=== PATIENT | male | born 1995 | race Caucasian/White ===

== ENCOUNTER 2016-12-26 14:29 | Outpatient (CLI) ==
[2014-12-02 10:19] VITALS: BMI 21.1
--- NOTE | 2016-12-26 15:29 | US ---
EXAM: SCROTAL ULTRASOUND HISTORY: Pain and palpable region of the left scrotum FINDINGS: Scrotal ultrasound exam performed using real time siegel-scale and color-flow Doppler imaging. The right testis measures 3.8 x 2.2 x 3.0 cm and the left measures 4.1 x 2.0 x 2.4 cm. Testes demonstrate normal and symmetric echogenicity and blood flow. Incidental note of a tiny test icular appendage bilaterally. Epididymal tissue within normal limits. There is a moderate sized le ft varicocele which was found at the region of palpable concern. Trace simple bilateral hydroceles. IMPRESSION: Moderate sized left varicocele corresponds to the region of palpable concern. Otherwise findings within normal limits.
== END 2016-12-26 14:30 | disposition home or self-care (01) ==
LOC: RAD 14:29
PROVIDERS: ATTEND Nurse Practitioner Family
DX: N50.89 Other specified disorders of the male genital organs (principal)

== ENCOUNTER 2017-08-23 16:21 | Outpatient (CLI) ==
[2014-12-02 10:19] VITALS: BMI 21.1
[2017-08-23 16:28] LABS: FLU INTERNAL QC INTERNAL QC VALID
[2017-08-23 16:29] LABS: RAPID FLU A NEGATIVE (NEGATIVE); RAPID FLU B NEGATIVE (NEGATIVE)
== END 2017-08-23 16:22 | disposition home or self-care (01) ==
LOC: LAB 16:21
PROVIDERS: ATTEND Nurse Practitioner Family
DX: J02.9 Acute pharyngitis, unspecified (principal); R05 Cough; R50.9 Fever, unspecified
CPT/HCPCS: 87651; 87804; 87880

== ENCOUNTER 2018-03-20 13:59 | Outpatient (CLI) ==
[2014-12-02 10:19] VITALS: BMI 21.1
--- NOTE | 2018-03-20 15:27 | DI ---
EXAM: Five views of the lumbar spine. History: Lower back pain. Comparison: Lumbar spine radiograph 09/27/2014 Findings: No acute fracture or subluxation. No change in the mild to moderate disc space narrowing at T12-L1 with endplate sclerosis and small osteophytes. The other disc space heights are preserved. Impression: 1. No acute osseous abnormality. 2. No change in the mild to moderate degenerative disc disease at T12-L1.
--- NOTE | 2018-03-20 15:40 | DI ---
EXAM: Cervical spine seven views HISTORY: Neck pain. FINDINGS: Normal bone density. At C5/C6, there is degenerative appearance with endplate irregularit y and anterior osteophytic spurring with subtle loss of height at C5. The other interspaces and vert ebral bodies appeared normal. Facets are normal. There is no bony encroachment upon the neural fora karine or spondylolisthesis. Lateral masses of C1 and C2 are normally aligned and the odontoid proce ss is intact. IMPRESSION: Degenerative changes C5/C6. Otherwise unremarkable.
== END 2018-03-20 14:00 | disposition home or self-care (01) ==
LOC: LAB 13:59
PROVIDERS: ATTEND Nurse Practitioner Family
DX: M54.2 Cervicalgia (principal); M54.5 Low back pain; G44.201 Tension-type headache, unspecified, intractable
CPT/HCPCS: 36415; 80053; 81001; 85025

== ENCOUNTER 2018-04-10 08:08 | Outpatient (CLI) ==
[2014-12-02 10:19] VITALS: BMI 21.1
--- NOTE | 2018-04-10 11:25 | MRI ---
EXAM: MRI cervical spine without IV contrast. DATE: 04/10/2018. HISTORY: Cervical degenerative disc disease. TECHNIQUE: Sagittal and axial T1W and T2W sequences of the cervical spine along with sagittal IR and coronal T2W sequences were obtained using 1.2 Selina magnet. No IV contrast. COMPARISON: C-spine series 20 March 2018. FINDINGS: There is no cervical scoliosis. No acute c-spine fracture, subluxation, osseous malignanc y, or jumped facet is evident. Cervical vertebra are normal in height. Bone marrow signal is normal . Moderate disc space narrowing and small anterior osteophytes are detected at C5-6. Cervical and u pper thoracic spinal cord reveals no syrinx, cord edema, myelomalacia, or neoplasm. Visible brainstem is normal. There is no Chiari 1 malformation. Small lymph nodes are identified wi thin the anterior cervical chain bilaterally. No thyroid, submandibular, or parotid gland neoplasm i s apparent. Trachea, larynx, and epiglottis are normal. No suspicious neck mass, cervical lymphaden opathy, apical lung mass, pneumonia, or pleural effusion is identified. Segmental analysis: C2-3: Normal. C3-4: Normal. C4-5: Normal. C5-6: Normal. C6-7: Normal. C7-T1: Normal. IMPRESSIONS: 1. No cervical disc protrusion/bulge, cord compression, central stenosis or foraminal stenosis. 2. Mild/moderate disc disease at C5-6.
--- NOTE | 2018-04-10 11:36 | MRI ---
EXAM: MRI lumbar spine without IV contrast. DATE: 04/10/2018. HISTORY: Low back pain. TECHNIQUE: Sagittal and axial T1W and T2W sequences of the lumbar spine along with sagittal IR and c oronal T2W sequences were obtained using 1.2 Selina magnet. No IV contrast. COMPARISON: LS spine series 20 March 2018. MRI L-spine 12/08/2014. FINDINGS: There are five [id number]-iun-xanbarg lumbar vertebra. Minor leftward curvature of the lumbar sp ine is redemonstrated. No acute lumbar fracture, subluxation, osseous malignancy, or pars interartic ularis defect is identified. Lumbar vertebrae normal in height. Chronic Schmorl's nodes are identif ied at each level from T11 through S1. Bone marrow signal is normal. Mild T12-L1 and mild L5-S1 dis c space narrowing is detected. No acute sacral fracture or stress reaction is apparent. SI joints a re unremarkable. Conus medullaris terminates at L1. Visible spinal cord is normal. No retroperitoneal lymphadenopathy, paraspinal mass, or aortic aneurysm is detected. Paraspinal musc ulature is symmetric bilaterally. Visible portions of the liver, spleen, adrenal glands, and kidneys are normal. No definitive bowel obstruction or neoplasm is apparent. Segmental analysis: T11-12: Normal. T12-L1: Minimal posterior disc bulge does not cause conus compression, central stenosis or foraminal stenosis. L1-2: Normal. L2-3: Short pedicles and minor posterior to foraminal disc bulge cause mild central canal stenosis a nd minor bilateral foraminal encroachment. L3-4: Short pedicles and minor concentric disc bulge cause mild central canal stenosis and mild bila teral foraminal narrowing. L4-5: Short pedicles and minor posterior to foraminal disc bulge cause moderate central canal stenos is and moderate narrowing at the opening to each foramen. L5-S1: Short pedicles and minor posterior disc bulge cause triangulation of the canal. Each foramen is patent. IMPRESSIONS: 1. Short pedicles and minor disc bulges cause multilevel foraminal stenoses as described. 2. Multilevel central canal stenoses (L2-3: Mild. L3-4: Mild. L4-5: Moderate. L5-S1: Minor). 3. T - L-spine small, chronic Schmorl's nodes. Note: Overall, little change from November 2014.
== END 2018-04-10 08:09 | disposition home or self-care (01) ==
LOC: RAD 08:08
PROVIDERS: ATTEND Nurse Practitioner Family
DX: M50.30 Other cervical disc degeneration, unspecified cervical region (principal); M54.5 Low back pain; M48.061 Spinal stenosis, lumbar region without neurogenic claudication

== ENCOUNTER 2018-04-26 13:00 | Outpatient (RCR) ==
[2014-12-02 10:19] VITALS: BMI 21.1
--- NOTE | 2018-04-18 14:25 | RS.OPPTEV2 ---
Date of Note: 04/18/18 Visit #: 1 Date of Evaluation: 04/18/18 Payer Source: Insurance Surgery Performed?: No Treatment Diagnosis: degenerative disc disease , cervical History of Condition/Mechanism of Injury:: Patient reports pain began approx 2 months ago. No known injury. Prior Level of Function.....Patient was independent with: ADL's, Self Care, Work /Vocation, Caregiving, Ambulation/Mobility, Community Integration/Access Functional Limitations: Sleep, Self Care, ADL's, Reaching, Pushing, Pulling, Lifting, Carrying, Sitting, Standing, Bending, Squatting, Ambulation, Community Access/Integration Current Subjective/complaints:: pt states he was working in [employer], most duties require overhead lifting, working. States he has been laid off for past 2 months due to pain. Reports he lives with girlfriend and new baby. Treatment Side (optional): N/A *Precautions: n/a Medical History Medical History Comments:: lumbar pain, degenerative disc disease Smoking Status: Current every day smoker Diagnostic Testing/Imaging:: cervical MRI: mild to mod disc disease C5-C6. no cervical disc protrusion/bulge, cord compression, central stenosis or foraminal stenosis. Hx Home Medications: diclofenac, tramadol, muscle relaxer Patient's Goals: decrease pain and be able to straighten up. Pain Assessment - Pain Description Pain Location: cervical spine Pain Description: Tightness, Sharp, Aching, Chronic Current Pain Intensity: 8 Worst Pain Intensity: 9 Functional Outcome Measure Neck Disability Index: 32 - G Codes & Severity Modifier G Codes & Modifier: n/a Source of G Code score: n/a Observation - Observation Posture: Forward Head, Rounded Shoulders, Increased Thoracic Kyphosis, Decreased Lumbar Lordosis Handedness: Right Gait - Gait Pattern General Gait Pattern Observation: Crouched Gait, Decrease Stride Lngth (R), Decrease Stride Lngth (L) General Range of Motion: BUE WFL's. BLE WFL's Muscle Strength: BUE shld flex 4/5, elbow flex/ext 4+/5,. BLE hip flex 4/5, knee flex/ext 4+/5, ankle DF/PF 4+/5 - ROM Cervical Spine Range of Motion Limitations: Soft Tissue Tightness, Muscle Weakness, Pain Comments: pt with significantly limited cervical ext. pt unable to get to neutral . pt limited with cervical rotation approx 8-10 deg R and L rotation. pt unable to perform lat side bending. - Strength Cervical Extension: 2 Poor Cervical Flexion: 3 Fair Cervical Lateral Flexion: 2 Poor Cervical Rotation: 2 Poor - Special Tests Foraminal Distraction: Positive Foraminal Compression: Positive Left (pt with increased pain in cervical spine with distraction as well as compression), Positive Right Palpation Palpation Findings: Tenderness, Trigger Point, Muscle Guarding (pt with significant tenderness, muscle guarding cervical paraspinals, upper trap, scalene, pt also with multipl trigger points noted B upper trap and scalene. ) Sensation - Sensation Right Upper Extremity: Impaired Left Upper Extremity: Impaired (Reports occasional numbness and tingling B UE's. ) Right Lower Extremity: Intact/Normal Left Lower Extremity: Intact/Normal Balance - Sitting Balance Static Sitting Balance: Good Dynamic Sitting Balance: Good - Standing Balance Static Standing Balance: Good Dynamic Standing Balance: Good - Comments Balance Assessment Comments: pt with no LOB with amb, - Treatment Modality: Electrical Stim Unattended Parameters/Method Applied: IFC x 20 mins at 15ma Treatment Area: cervical spine Patient Position: Right Sidelying - Heat/Cryotherapy Treatment: Cryotherapy (cervical spine with IFC) Interventions - Exercise/Activities/Manual Therapy Exercises/Activities: pt performed modified wall iftikhar with focus on bringing shlds and head to wall. pt unable to get head to wall. pt also performed gentle isometric ex cervical flex, ext, lat side bending. pt unable to tolerate greater than 1-2 reps. Manual Therapy: pt received occipital released due to muscle guarding and c/o headache. HOME EXERCISE PROGRAM: pt given written HEP including modified wall iftikhar, isometric cervical flex, ext, lat bending, corner stretch. Instructed pt to appy heat before stretch and ice after. - Charges Timed Code Treatment Minutes: 46 Total Treatment Time: 64 Procedures billed for this date of service:: eval med, estim unattended EVALUATION COMPLEXITY LEVEL EVALUATION COMPLEXITY LEVEL: HISTORY: Low (cervical disc disease), EXAM OF BODY SYSTEMS: Medium (pain, ROM, strength, posture), CLINICAL PRESENTATION: Medium ( evolving), CLINICAL DECISION MAKING: Medium Assessment Assessment: pt presents with cervical degenerative disc disease with significant muscle guarding, trigger points as well as significantly limited ROM and pain in cervical spine. Patient Education: Home Exercise Program, Education of Plan of Care Rehab Potential: Good Short Term Goals Goal #1: Rate pain < 6/10 Goal to be met by: 05/09/18 Goal #2: pt perform cervical ext to neutral, increase rotation and side bending Goal to be met by: 05/09/18 Goal #3: pt with no radicular symptoms into BUE Goal to be met by: 05/09/18 Goal #4: pt independent with intial HEP Goal to be met by: 05/09/18 Nursing Home Goals Goal #1: Patient independent in HEP to maintain gains after dc Goal to be met by: 05/30/18 (25%) Goal #2: Improve neck disability index < 20 Goal to be met by: 05/30/18 Goal #3: pt report able to perform ADL's and daily tasks with decreased pain Goal to be met by: 05/30/18 Goal #4: pt rate pain <5/10 Goal to be met by: 05/30/18 Plan - Treatment to be Provided Procedures: Therapeutic Exercises, Therapeutic Activity, Manual Therapy, Massage , Patient Education Modalities: Electrical Stimulation, Ultrasound/Phonophoresis, Cryotherapy, Hot Packs, Mechanical Traction - Treatment Plan Frequency: 2-3 a week Duration: 6 weeks ORDER # VISITS AND/OR THROUGH DATE: 05/30/18 - Treatment Code (1) Cervical back pain with evidence of disc disease Code(s): M50.90 - CERVICAL DISC DISORDER, UNSP, UNSPECIFIED CERVICAL REGION (2) Radiculopathy affecting upper extremity Code(s): M54.10 - RADICULOPATHY, SITE UNSPECIFIED (3) Muscle tightness Code(s): M62.89 - OTHER SPECIFIED DISORDERS OF MUSCLE
--- NOTE | 2018-04-20 11:31 | RS.OPPTDN ---
Subjective Date of Note: 04/20/18 Visit #: 2 Date of Evaluation: 04/18/18 Payer Source: Insurance Treatment Diagnosis: degenerative disc disease , cervical Current Subjective/complaints:: Patient says he feels "about the same as last time." He says he has tried HEP and felt some discomfort. Reports that he has pain on both sides of his neck equally with SAMPSON's, but does not have any trouble sleeping. He reports sleeping on his sides. *Precautions: n/a - Treatment Modality: Electrical Stim Unattended Parameters/Method Applied: IFC x 20 mins @ 14-15 ma 4 small pads at the cervical paraspinals and UT. Patient Position: Right Sidelying - Heat/Cryotherapy Treatment: Hot Pack Interventions - Exercise/Activities/Manual Therapy Exercises/Activities: Patient performs isometric neck retraction (gentle) 2x5, L and R SB x 5, shoulder shrugs and scap retraction x 10. Instruction with patient and significant other on postural techniques and prompting as well as HEP including trying to lay supine and perform cspine ROM. Total minutes of Exercise: 8 Manual Therapy: Patient begins with light trigger point work and STM with cross stretching to improve ROM throughout the bilateral UT and mid cervical paraspinals. Total minutes of Manual Therapy: 12 HOME EXERCISE PROGRAM: pt given written HEP including modified wall iftikhar, isometric cervical flex, ext, lat bending, corner stretch. Instructed pt to apply heat before stretch and ice after. - Charges Timed Code Treatment Minutes: 20 Total Treatment Time: 40 Procedures billed for this date of service:: hp, estim (un), MT Assessment: Patient presents with very FHP and rounded shoulders. He did not feel any improvement with pain or flexibility, however, after modalities and MT/ therex, patient was able to achieve near neutral positioning. 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 He will need consistent cueing for postural mechanics and routine HEP to improve posture and pain level. Patient Education: Education of diagnosis, Body/Joint mechanics, Home Exercise Program, Education of Plan of Care Patient demonstrates compliance with HEP?: Yes Short Term Goals Goal #1: Rate pain < 6/10 Goal to be met by: 05/09/18 Goal #2: pt perform cervical ext to neutral, increase rotation and side bending Goal to be met by: 05/09/18 Goal #3: pt with no radicular symptoms into BUE Goal to be met by: 05/09/18 Goal #4: pt independent with intial HEP Goal to be met by: 05/09/18 [facility] Goals Goal #1: Patient independent in HEP to maintain gains after dc Goal to be met by: 05/30/18 (25%) Goal #2: Improve neck disability index < 20 Goal to be met by: 05/30/18 Goal #3: pt report able to perform ADL's and daily tasks with decreased pain Goal to be met by: 05/30/18 Goal #4: pt rate pain <5/10 Goal to be met by: 05/30/18 Plan PLAN OF CARE EXPIRES ON:: 05/30/18 ORDER # VISITS AND/OR THROUGH DATE: 05/30/18 PLAN: Patient to continue for estim and MT/EX to reduce pain to the neck and SAMPSON' s and improve posture/ROM.
--- NOTE | 2018-04-26 14:32 | RS.OPPTDN ---
Subjective Date of Note: 04/26/18 Visit #: 3 Date of Evaluation: 04/18/18 Payer Source: Insurance Treatment Diagnosis: degenerative disc disease , cervical Current Subjective/complaints:: Patient says he can tell he is standing straighter and is able to hold his neck up better. He reports that he still has soreness/tightness, which is reasonable. Patient asks if we can use ultrasound today to see better improvement. *Precautions: n/a Pain Assessment - Pain Description Pain Location: both sides of neck and less occasional, less intense SAMPSON - Treatment Modality: Ultrasound Parameters/Method Applied: continuous @ 1.5 w/cm2 x 10 mins bilateral mid to lower cervical paraspinals and bilateral UT Patient Position: Sitting - Heat/Cryotherapy Treatment: Hot Pack (cervical in supine 20 mins) Interventions - Exercise/Activities/Manual Therapy Exercises/Activities: Patient performs isometric neck retraction 2x5, L and R SB x 5, shoulder shrugs and scap retraction x 10. Continued with encouragement for postural cueing and techniques to have more neutral position for cspine. Total minutes of Exercise: 9 Manual Therapy: Patient continues with light trigger point work and STM that does progress into slightly deeper with cross stretching to improve ROM throughout the bilateral UT and mid cervical paraspinals. Total minutes of Manual Therapy: 14 HOME EXERCISE PROGRAM: pt given written HEP including modified wall iftikhar, isometric cervical flex, ext, lat bending, corner stretch. Instructed pt to apply heat before stretch and ice after. - Charges Timed Code Treatment Minutes: 33 Total Treatment Time: 53 Procedures billed for this date of service:: hp, u/s, MT Assessment: Patient presents amb to our dept with more erect posture for the cspine and along with SO admit improved pain and less tightness to the neck. He demo near neutral positioning during u/s and is able to tommy increased pressure during MT and u/s. Patient admitted feeling more relief with u/s today than estim. Benefits and explaination of treatment provided to patient and SO. 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
== END 2018-04-26 23:59 | disposition short-term general hospital (02) ==
PROVIDERS: ATTEND Nurse Practitioner Family
DX: M50.30 Other cervical disc degeneration, unspecified cervical region (principal); M54.10 Radiculopathy, site unspecified; M62.89 Other specified disorders of muscle

== ENCOUNTER 2018-05-10 10:00 | Outpatient (RCR) ==
[2016-12-26 14:34] VITALS: BMI 21.1
--- NOTE | 2018-04-27 13:57 | RS.OPPTDN ---
Subjective Date of Note: 04/27/18 Visit #: 4 Date of Evaluation: 04/18/18 Payer Source: Insurance Treatment Diagnosis: degenerative disc disease , cervical Current Subjective/complaints:: Patient feels u/s has helped. He says he can turn his neck side to side better, but more so with turning to the R. *Precautions: n/a - Treatment Modality: Ultrasound Parameters/Method Applied: continuous @1.5 w/cm2 x 12 mins bilateral UT and mid to lower cspine paraspinals - Heat/Cryotherapy Treatment: Hot Pack (20 mins cervical in R sidelying) Interventions - Exercise/Activities/Manual Therapy Exercises/Activities: Patient receives passive cspine ROM for SB and rotation bilaterally. He performs isometric neck retraction 2x5, L and R SB x 5, shoulder shrugs and scap retraction x 10. He begins with red tband scap retraction x 10 for cues of correctiveness and posture. Total minutes of Exercise: 11 Manual Therapy: Patient continues with light trigger point work and STM that does progress into slightly deeper with cross stretching to improve ROM throughout the bilateral UT and mid cervical paraspinals. Total minutes of Manual Therapy: 13 HOME EXERCISE PROGRAM: pt given written HEP including modified wall iftikhar, isometric cervical flex, ext, lat bending, corner stretch. Instructed pt to apply heat before stretch and ice after. - Charges Timed Code Treatment Minutes: 36 Total Treatment Time: 56 Procedures billed for this date of service:: hp, MT, EX, u/s Assessment: Patient admitting improved pain level, increased ability to rotate cspine, and improved resting posture. Patient given tband to advance scapular strength. Patient Education: Body/Joint mechanics, Home Exercise Program Patient demonstrates compliance with HEP?: Yes Short Term Goals Goal #1: Rate pain < 6/10 Goal to be met by: 05/09/18 Progress towards Goal:: Progressing Goal #2: pt perform cervical ext to neutral, increase rotation and side bending Goal to be met by: 05/09/18 Progress towards Goal:: Progressing Goal #3: pt with no radicular symptoms into BUE Goal to be met by: 05/09/18 Goal #4: pt independent with intial HEP Goal to be met by: 05/09/18 Progress towards Goal:: Progressing [facility] Goals Goal #1: Patient independent in HEP to maintain gains after dc Goal to be met by: 05/30/18 (25%) Goal #2: Improve neck disability index < 20 Goal to be met by: 05/30/18 Goal #3: pt report able to perform ADL's and daily tasks with decreased pain Goal to be met by: 05/30/18 Goal #4: pt rate pain <5/10 Goal to be met by: 05/30/18 Plan PLAN OF CARE EXPIRES ON:: 05/30/18 ORDER # VISITS AND/OR THROUGH DATE: 05/30/18 PLAN: Patient to continue for u/s and advancing therex
--- NOTE | 2018-04-30 14:39 | RS.OPPTDN ---
Subjective Date of Note: 04/30/18 Visit #: 5 Date of Evaluation: 04/18/18 Payer Source: Insurance Treatment Diagnosis: degenerative disc disease , cervical Current Subjective/complaints:: Patient says he continues to see small changes in motion and pain. Reports u/s seems to be more helpful than estim. C/o bilateral shoulder soreness today possibly related to beginning tband exercises over the weekend. He says he has been able to lay on his back so to improve flexibility with less discomfort and has awakened on his back. *Precautions: n/a Pain Assessment - Pain Description Pain Location: UT bilaterally to shoulders - Treatment Modality: Ultrasound Parameters/Method Applied: Continuous @ 1.5 w/cm2. bilateral UT and mid to lower cspine paraspinals Patient Position: Sitting - Heat/Cryotherapy Treatment: Hot Pack (cervical in sidelying x 20 mins) Interventions - Exercise/Activities/Manual Therapy Exercises/Activities: Patient receives passive cspine ROM for SB and rotation bilaterally. He performs isometric neck retraction 2x5, L and R SB x 5, shoulder shrugs and scap retraction x 10. General postural techniques and supine positoning to allow further neck retraction or cervical neutrality. Reviewed scap retraction with tband. Total minutes of Exercise: 8 Manual Therapy: Patient continues with light trigger point work and STM that does progress into slightly deeper with cross stretching to improve ROM throughout the bilateral UT and mid cervical paraspinals. Total minutes of Manual Therapy: 13 HOME EXERCISE PROGRAM: pt given written HEP including modified wall iftikhar, isometric cervical flex, ext, lat bending, corner stretch. Instructed pt to apply heat before stretch and ice after. - Charges Timed Code Treatment Minutes: 33 Total Treatment Time: 53 Procedures billed for this date of service:: Hp, u/s, MT, EX Assessment: Patient progressing well with improving ROM to cspine and being able to tommy supine positioning. He admits improved pain level, but has recently had soreness to both shoulders probably related to beginning tband exercises. 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 Progress as tommy.
--- NOTE | 2018-05-02 15:13 | RS.OPPTDN ---
Subjective Date of Note: 05/02/18 Visit #: 6 Date of Evaluation: 04/18/18 Payer Source: Insurance Treatment Diagnosis: degenerative disc disease , cervical Current Subjective/complaints:: Patient says he had a SAMPSON yesterday, but says he they are less painful and less often. States pain is averaging 5/10 and admits improved ability to hold his neck up. *Precautions: n/a Pain Assessment - Pain Description Pain Location: bilateral UT and to the shoulders, mildly - Treatment Modality: Ultrasound Parameters/Method Applied: continuous @ 1.5 w/cm2 x 10 mins to bilateral UT and mid to lower cervical paraspinals. Patient Position: Sitting - Heat/Cryotherapy Treatment: Hot Pack (15 mins to cervical in R sidelying) Interventions - Exercise/Activities/Manual Therapy Exercises/Activities: Patient receives passive cspine ROM for SB and rotation bilaterally. He performs isometric neck retraction 2x5, L and R SB x 5, shoulder shrugs and scap retraction x 10. General postural techniques and supine positoning to allow further neck retraction or cervical neutrality. Reviewed scap retraction with tband. Total minutes of Exercise: 12 Manual Therapy: Occipital release with STM to bilateral UT x 8 mins HOME EXERCISE PROGRAM: pt given written HEP including modified wall iftikhar, isometric cervical flex, ext, lat bending, corner stretch. Instructed pt to apply heat before stretch and ice after. - Charges Timed Code Treatment Minutes: 20 Total Treatment Time: 40 Procedures billed for this date of service:: hp, u/s, MT, EX Assessment: Patient maintaining increased cspine posture this week withstanding near neutral positioning with less soreness. Patient actively corrects his posture along with cues from his SO consistently. Decreased frequency and intensity of SAMPSON's and neck pain, but back pain remains to be problematic. Patient Education: Body/Joint mechanics, Home Exercise Program Patient demonstrates compliance with HEP?: Yes Short Term Goals Goal #1: Rate pain < 6/10 Goal to be met by: 05/09/18 Progress towards Goal:: Met Comments:: 5/10 on avg Goal #2: pt perform cervical ext to neutral, increase rotation and side bending Goal to be met by: 05/09/18 Progress towards Goal:: Partially Met Goal #3: pt with no radicular symptoms into BUE Goal to be met by: 05/09/18 Progress towards Goal:: Progressing Comments:: Less often and less intensity Goal #4: pt independent with intial HEP Goal to be met by: 05/09/18 Progress towards Goal:: 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
--- NOTE | 2018-05-03 15:52 | RS.OPPTDN ---
Subjective Date of Note: 05/03/18 Visit #: 7 Date of Evaluation: 04/18/18 Payer Source: Insurance Treatment Diagnosis: degenerative disc disease , cervical Current Subjective/complaints:: Patient says he had a little soreness with continuing with tband exercises, but also lifts his 17# son daily without difficulty. He says he is finding he can sleep flat without any pillows under his head while supine and maintaining his head "straigher." *Precautions: n/a Pain Assessment - Pain Description Pain Location: shoulders due to exercise tbands - Treatment Modality: Ultrasound Parameters/Method Applied: continuous @ 1.5 w/cm2 x 10 mins to bilateral UT Patient Position: Sitting Interventions - Exercise/Activities/Manual Therapy Exercises/Activities: Patient receives passive cspine ROM for SB and rotation bilaterally. He performs isometric neck retraction 2x5, L and R SB x 5, shoulder shrugs and scap retraction x 10. General postural techniques and supine positoning to allow further neck retraction or cervical neutrality. Green tband for scap retraction, 3# wand for bilateral shoulder flexion, and bilateral shoulder ER x 10. Total minutes of Exercise: 20 Manual Therapy: na HOME EXERCISE PROGRAM: pt given written HEP including modified wall iftikhar, isometric cervical flex, ext, lat bending, corner stretch. Instructed pt to apply heat before stretch and ice after. - Charges Timed Code Treatment Minutes: 30 Total Treatment Time: 45 Procedures billed for this date of service:: hp, u/s, ex Assessment: Patient demo improved cervical retraction holding more neutral posture without being prompted. He is progressing with therex with expected mild soreness to shoulders. Patient Education: Home Exercise Program Patient demonstrates compliance with HEP?: Yes Short Term Goals Goal #1: Rate pain < 6/10 Goal to be met by: 05/09/18 Progress towards Goal:: Met Goal #2: pt perform cervical ext to neutral, increase rotation and side bending Goal to be met by: 05/09/18 Progress towards Goal:: Partially Met Goal #3: pt with no radicular symptoms into BUE Goal to be met by: 05/09/18 Progress towards Goal:: Progressing Goal #4: pt independent with intial HEP Goal to be met by: 05/09/18 Progress towards Goal:: Progressing Retirement Goals Goal #1: Patient independent in HEP to maintain gains after dc Goal to be met by: 05/30/18 (25%) Progress towards goal: Progressing Goal #2: Improve neck disability index < 20 Goal to be met by: 05/30/18 Goal #3: pt report able to perform ADL's and daily tasks with decreased pain Goal to be met by: 05/30/18 Progress towards goal: Progressing Comments: Able to now take out trash and hop picker 17# son without difficulty Goal #4: pt rate pain <5/10 Goal to be met by: 05/30/18 Progress towards goal: Progressing Plan PLAN OF CARE EXPIRES ON:: 05/30/18 ORDER # VISITS AND/OR THROUGH DATE: 05/30/18 PLAN: Patient to continue with modalties and progressing therex
--- NOTE | 2018-05-08 12:01 | RS.OPPTDN ---
Subjective Date of Note: 05/08/18 Visit #: 8 Date of Evaluation: 04/18/18 Payer Source: Insurance Treatment Diagnosis: degenerative disc disease , cervical Current Subjective/complaints:: Patient says his pain is less and can tell he is standing straighter, but still remains with some limitation with cervical ROM. States he has not had a SAMPSON in about 1 week, rarely having hand tingling now and no longer requires help getting out of bed. Reports he is supposed to go to [place] for school all next week and will be unable to attend. States he would be driving and his SO will be following him. He adds he saw his MD yesterday and referred him to another MD because she is moving. *Precautions: n/a - Treatment Modality: Ultrasound Parameters/Method Applied: continuous @ 1.5 w/cm2 x 10 mins bilateral UT Patient Position: Sitting - Heat/Cryotherapy Treatment: Hot Pack (cervical in supine x 15 mins) Interventions - Exercise/Activities/Manual Therapy Exercises/Activities: Patient receives passive cspine ROM for SB and rotation bilaterally. He performs isometric neck retraction 3x5, L and R SB x 5, shoulder shrugs and scap retraction x 10. General postural techniques and supine positoning to allow further neck retraction or cervical neutrality. Patient stands against the wall for scap adduction and corrective posture, wall angels, 3# wand for forward flexion to ~120 degrees, green pull downs, scap retraction at multi gym, blue tband for scap retraction x10. Gave green tband for bilateral shoulder ER for home. Total minutes of Exercise: 22 Manual Therapy: na HOME EXERCISE PROGRAM: pt given written HEP including modified wall iftikhar, isometric cervical flex, ext, lat bending, corner stretch. Instructed pt to apply heat before stretch and ice after. - Charges Timed Code Treatment Minutes: 32 Total Treatment Time: 47 Procedures billed for this date of service:: hp, u/s, ex Assessment: Patient demo neutral cervical posture today. Great improvement noted with decreased muscle guarding, tenderness, and technique with all therex. Patient remains with c/o lower back pain, but also admits history of DJD and arthritis in general. Patient's SO admits he no longer needs help to get out of bed, improved posture, and patient has not had SAMPSON in over a week. Patient Education: Body/Joint mechanics, Education of Plan of Care Patient demonstrates compliance with HEP?: Yes Short Term Goals Goal #1: Rate pain < 6/10 Goal to be met by: 05/09/18 Progress towards Goal:: Met Goal #2: pt perform cervical ext to neutral, increase rotation and side bending Goal to be met by: 05/09/18 Progress towards Goal:: Met Goal #3: pt with no radicular symptoms into BUE Goal to be met by: 05/09/18 Progress towards Goal:: Partially Met Goal #4: pt independent with intial HEP Goal to be met by: 05/09/18 Progress towards Goal:: Met Jail Goals Goal #1: Patient independent in HEP to maintain gains after dc Goal to be met by: 05/30/18 (25%) Progress towards goal: Progressing Goal #2: Improve neck disability index < 20 Goal to be met by: 05/30/18 Comments: Assess next session Goal #3: pt report able to perform ADL's and daily tasks with decreased pain Goal to be met by: 05/30/18 Progress towards goal: Progressing Goal #4: pt rate pain <5/10 Goal to be met by: 05/30/18 Progress towards goal: Progressing Plan PLAN OF CARE EXPIRES ON:: 05/30/18 ORDER # VISITS AND/OR THROUGH DATE: 05/30/18 PLAN: Patient to continue 1 more day this week. He will not be able to attend all next week. Then resume thereafter.
--- NOTE | 2018-05-10 12:02 | RS.OPPTDN ---
Subjective Date of Note: 05/10/18 Visit #: 9 Date of Evaluation: 04/18/18 Payer Source: Insurance Treatment Diagnosis: degenerative disc disease , cervical Current Subjective/complaints:: Patient says his neck is doing very well, but having elevated back pain. He says he has been performing HEP without difficulty. He reports he was able to kayak for ~2-3 hours yesterday. He denies any increase in symptoms to the neck, but possibly may have caused back soreness. 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 He admits that his girlfriend will be driving behind him. *Precautions: n/a Pain Assessment - Pain Description Pain Location: low back and shoulders - Treatment Modality: Ultrasound Parameters/Method Applied: continuous @ 1.5 w/cm2 x 10 mins to bilateral UT Patient Position: Sitting - Heat/Cryotherapy Treatment: Hot Pack (cervical in supine x 20 mins) Interventions - Exercise/Activities/Manual Therapy Exercises/Activities: Patient receives passive cspine ROM for SB and rotation bilaterally. He performs progressive isometric neck retraction 3x5, L and R SB 2 x 5, shoulder shrugs and scap retraction x 10. Assisted stretching for scap adduction. General postural techniques against the wall. Patient stands against the wall for scap adduction and corrective posture, wall angels, 4# wand for forward flexion to ~120 degrees, green pull downs, scap retraction at multi gym, blue tband for scap retraction x10. Total minutes of Exercise: 22 Manual Therapy: na HOME EXERCISE PROGRAM: pt given written HEP including modified wall iftikhar, isometric cervical flex, ext, lat bending, corner stretch. Instructed pt to apply heat before stretch and ice after. - Charges Timed Code Treatment Minutes: 32 Total Treatment Time: 47 Procedures billed for this date of service:: hp,u/s,ex Assessment: Patient progressing significantly with ROM and pain to the neck. He is experiencing mid to low back pain currently. He is able to resume some outdoor activities such as kayaking, but did not result in neck pain (although he may have elevated back pain as a result). He has been practicing more Active cervical motion to prepare to drive to [place] next week for training. Patient Education: Home Safety, Education of Plan of Care Patient demonstrates compliance with HEP?: Yes Short Term Goals Goal #1: Rate pain < 6/10 Goal to be met by: 05/09/18 Progress towards Goal:: Met Goal #2: pt perform cervical ext to neutral, increase rotation and side bending Goal to be met by: 05/09/18 Progress towards Goal:: Met Goal #3: pt with no radicular symptoms into BUE Goal to be met by: 05/09/18 Progress towards Goal:: Partially Met Goal #4: pt independent with intial HEP Goal to be met by: 05/09/18 Progress towards Goal:: Met Glass Driller Goals Goal #1: Patient independent in HEP to maintain gains after dc Goal to be met by: 05/30/18 (25%) Progress towards goal: Progressing Goal #2: Improve neck disability index < 20 Goal to be met by: 05/30/18 Goal #3: pt report able to perform ADL's and daily tasks with decreased pain Goal to be met by: 05/30/18 Progress towards goal: Progressing Goal #4: pt rate pain <5/10 Goal to be met by: 05/30/18 Progress towards goal: Progressing Plan PLAN OF CARE EXPIRES ON:: 05/30/18 ORDER # VISITS AND/OR THROUGH DATE: 05/30/18 PLAN: Patient unable to attend all next week due to training. Will resume the week of the .
--- NOTE | 2018-05-21 10:16 | RS.CXNS ---
Date of scheduled appointment: 05/21/18 Type: Cancel Reason for Cancel/NS: Patient says that he has found out that his insurance may not pay for continued therapy as he has been off from work. He is going to contact us later as he is trying to apply for Medicaid.
== END 2018-05-26 23:59 ==
PROVIDERS: ATTEND Nurse Practitioner Family
DX: M50.30 Other cervical disc degeneration, unspecified cervical region (principal)